=== PATIENT | female | born 1930 | race Caucasian/White ===

== ENCOUNTER 2017-05-31 18:37 | Inpatient (IN) | payer MEDICARE, BC ==
[2017-05-31 18:57] VITALS: BP 118/65
[2017-05-31] MEDS ORDERED: Maalox 30 mL Cup PO PRN (19:09)
[2017-06-01] MEDS ORDERED: ALBUTEROL SULFATE HHN SCH (06:00)
[2017-06-01] MEDS ORDERED: ALBUTEROL SULFATE HHN PRN (06:30)
[2017-06-01] MEDS ORDERED: Albuterol Nebulizer 2.5mg/3mL HHN PRN (07:48)
[2017-06-01] MEDS ORDERED: LOVASTATIN 20 MG PO SCH (09:00)
[2017-06-01] MEDS: Multivitamin Tab PO SCH (11:51)
[2017-06-01] MEDS ORDERED: THEOPHYLLINE ANHYDROUS 400 MG PO SCH (21:00)
[2017-06-01] MEDS ORDERED: Theophylline 200 mg ER Tab PO SCH (21:00)
[2017-06-02] MEDS: Diltiazem CD 120 mg 24H PO SCH (08:14)
[2017-06-02] MEDS: Multivitamin Tab PO SCH (08:14)
[2017-06-02] MEDS: Hydrocodone/APAP 5mg/325mg Tab PO PRN (08:25)
[2017-06-02] MEDS: Theophylline 100 mg ER Tab PO SCH (20:54)
[2017-06-03] MEDS: Diltiazem CD 120 mg 24H PO SCH (10:45)
[2017-06-03] MEDS: Multivitamin Tab PO SCH (10:45)
[2017-06-03] MEDS: Theophylline 100 mg ER Tab PO SCH (20:30)
[2017-06-04] MEDS: Diltiazem CD 120 mg 24H PO SCH (06:49)
[2017-06-04] MEDS: Multivitamin Tab PO SCH (08:15)
[2017-06-04] MEDS: Theophylline 100 mg ER Tab PO SCH (20:41)
[2017-06-05] MEDS: Diltiazem CD 120 mg 24H PO SCH (06:49)
[2017-06-05] MEDS: Multivitamin Tab PO SCH (08:34)
[2017-06-05] MEDS: Theophylline 100 mg ER Tab PO SCH (20:54)
[2017-06-06] MEDS: Diltiazem CD 120 mg 24H PO SCH (06:58)
[2017-06-06] MEDS: Multivitamin Tab PO SCH (08:51)
[2017-06-06] MEDS: Theophylline 100 mg ER Tab PO SCH (20:55)
[2017-06-07] MEDS: Diltiazem CD 120 mg 24H PO SCH (06:36)
[2017-06-07] MEDS: Multivitamin Tab PO SCH (08:42)
[2017-06-07] MEDS: Escitalopram Oxalate 5 mg Tab PO SCH (21:02)
[2017-06-07] MEDS: Theophylline 100 mg ER Tab PO SCH (21:03)
[2017-06-08] MEDS: Diltiazem CD 120 mg 24H PO SCH (06:51)
[2017-06-08] MEDS: Multivitamin Tab PO SCH (08:26)
[2017-06-08] MEDS: Theophylline 100 mg ER Tab PO SCH (20:59)
[2017-06-08] MEDS: Escitalopram Oxalate 5 mg Tab PO SCH (20:59)
[2017-06-09] MEDS: Diltiazem CD 120 mg 24H PO SCH (06:35)
[2017-06-09] MEDS: Multivitamin Tab PO SCH (08:36)
[2017-06-09] MEDS: Escitalopram Oxalate 5 mg Tab PO SCH (20:10)
[2017-06-09] MEDS: Theophylline 100 mg ER Tab PO SCH (20:10)
[2017-06-10] MEDS: Diltiazem CD 120 mg 24H PO SCH (06:51)
[2017-06-10] MEDS: Multivitamin Tab PO SCH (08:22)
[2017-06-10] MEDS: Escitalopram Oxalate 5 mg Tab PO SCH (21:29)
[2017-06-10] MEDS: Theophylline 100 mg ER Tab PO SCH (21:30)
[2017-06-11] MEDS: Diltiazem CD 120 mg 24H PO SCH (06:34)
[2017-06-11] MEDS: Multivitamin Tab PO SCH (09:54)
[2017-06-11] MEDS: Theophylline 100 mg ER Tab PO SCH (20:27)
[2017-06-12] MEDS: Diltiazem CD 120 mg 24H PO SCH (06:30)
[2017-06-12] MEDS: Multivitamin Tab PO SCH (08:14)
[2017-06-12] MEDS: Theophylline 100 mg ER Tab PO SCH (20:15)
[2017-06-13] MEDS: Diltiazem CD 120 mg 24H PO SCH (06:46)
--- NOTE | 2017-06-13 08:10 | General Progress Note ---
Subjective - Review of Systems Service Date: 06/13/17 Subjective: Awake, alert, afebrile Objective - Results Recent Labs: Laboratory Last Values POC Glucose 134 MG/DL (70 - 105) H 06/03/17 06:03 - Physical Exam Vitals and I&O: Vital Signs Temp 98.3 F 06/13/17 06:30 Pulse 63 06/13/17 06:46 Resp 18 06/13/17 06:30 BP 128/68 06/13/17 06:30 Pulse Ox 95 06/13/17 06:30 Intake & Output 06/12/17 06/13/17 06/13/17 18:59 06:59 18:59 Intake Total 1200 120 Balance 1200 120 Weight (lbs) 55.61 kg Intake: Oral 1200 120 Other: # Voids 3 # Bowel Movements 1 Active Medications: Current Medications Acetaminophen/Hydrocodone Bitart ([place] 5mg/325mg) 1 tab PO Q6H PRN PRN Reason: Pain (Moderate) Stop: 07/31/17 05:47 Last Admin: 06/02/17 08:25 Dose: 1 tab Al Hydrox/Mg Hydrox/Simethicone (Maalox) 30 ml PO Q4HR PRN PRN Reason: GI DISTRESS Stop: 07/30/17 19:08 Albuterol Sulfate (Albuterol 2.5mg/3ml Neb Ud) 2.5 mg HHN Q4HRT PRN PRN Reason: Shortness of Breath Stop: 07/31/17 07:47 Clopidogrel Bisulfate (Plavix) 75 mg PO DAILY [facility] Stop: 07/31/17 08:59 Last Admin: 06/12/17 08:15 Dose: 75 mg Digoxin (Lanoxin) 0.125 mg PO DAILY [facility] Stop: 07/31/17 08:59 Last Admin: 06/12/17 08:15 Dose: 0.125 mg Diltiazem HCl (Cardizem Cd) 120 mg PO QDAC [facility] Stop: 08/01/17 07:29 Last Admin: 06/13/17 06:46 Dose: Not Given Escitalopram Oxalate (Lexapro) 15 mg PO HS DAVID PRN Reason: Protocol Stop: 08/06/17 20:59 Lorazepam (Ativan) 0.5 mg PO Q4HR PRN; Protocol PRN Reason: Agitation Stop: 06/30/17 19:08 Last Admin: 06/09/17 14:50 Dose: 0.5 mg Multivitamins/Vitamin C (Theragran) 1 tab PO DAILY DAVID Stop: 07/31/17 08:59 Last Admin: 06/12/17 08:14 Dose: 1 tab Prednisone (Deltasone) 5 mg PO DAILY [facility]ID Stop: 07/31/17 08:59 Last Admin: 06/12/17 08:15 Dose: 5 mg Quetiapine Fumarate (Seroquel) 25 mg PO BID DAVID PRN Reason: Protocol Stop: 08/03/17 11:23 Last Admin: 06/12/17 16:43 Dose: 25 mg Simvastatin (Zocor) 10 mg PO HS DAVID PRN Reason: Protocol Stop: 07/31/17 20:59 Last Admin: 06/12/17 20:15 Dose: 10 mg Theophylline (Eddie-Dur) 400 mg PO HS DAVID Stop: 07/31/17 20:59 Last Admin: 06/12/17 20:15 Dose: 400 mg Zolpidem Tartrate (Ambien) 5 mg PO HS PRN PRN Reason: Insomnia Stop: 07/30/17 19:08 General: Alert HEENT: Atraumatic Neck: Supple Cardiovascular: Regular rate Lungs: Clear to auscultation - Procedures Procedures: Procedures Procedure Code Date INDIVID PSYCHOTHERAP NEC 94.39 11/14/05 OTHER GROUP THERAPY 94.44 11/14/05 RECREATIONAL THERAPY 93.81 11/14/05 Assessment/Plan - Problem List Patient Problems: All Active Problems CAD (coronary artery disease) (Acute) I25.10 CHF (congestive heart failure) (Acute) I50.9 COPD (chronic obstructive pulmonary disease) (Acute) Dementia (Acute) F03.90 Hypertension (Acute) I10 Psychosis (Acute) F29 - Assessment Assessment: See Above - Plan Plan: continue current treatment Nutritional Asmnt/Malnutr-PDOC - Dietary Evaluation Malnutrition Findings (Please click <Entered> for more info): Nutritional Asmnt/Malnutrition Start: 06/01/17 08: 38 Text: Status: Complete Freq: Document 06/05/17 16:01 GERMÁN (Rec: 06/05/17 16:11 GERMÁN [id number]) Nutritional Asmnt/Malnutrition Patient General Information Nutritional Screening Moderate Risk Screening Diagnosis Reason for visit: psychosis Pertinent Medical Hx/Surgical Hx HTN, Afib, CAD, COPD, CHF, CVA , dementia, psychosis Subjective Information 86 year old female. Pt was resting in bed during visit. Pt opened eyes and made contact upon RD's call, shook head declined interview at this time. Spoke to TONYA Plata, RN stated pt has been sleepy this AM, usually with fair to good appetite, no nutritional concerns. Observed loose skin possible hx weight loss, mild wasting to chest, otherwise appeared appropriate for age. Avg PO inake 75-100% since adm , meeting nutritional needs. Current Diet Order/ Nutrition Support [id number] Pertinent Medications Maalox, Theragran, Seroquel, Zocor Pertinent Labs POC glucose 117, 134 since adm No other labs Nutritional Hx/Data Height 1.57 m Height (Calculated Centimeters) 157.5 Current Weight (lbs) 53.932 kg Weight (Calculated Kilograms) 53.9 Weight (Calculated Grams) 60528.1 [place] Body Weight 110 Weight Status Approriate GI Symptoms Food Allergies No Skin Integrity/Comment: Jareth Gunn. Skin intact. Current %PO Good (75-100%) Estimated Nutritional Goals BEE in Kcals: Using Current wt Calories/Kcals/Kg CBW 118.9lb/54kg Kcals Calculated 1350-1620kcal (25-30kcal/kg) Protein: Using Current wt Protein Calculated 54g (1g/kg) Fluid: ml 1350-1620ml (1ml/kcal) Nutritional Problem 1. Problem Problem No nutritional problem at this time. Intervention/Recommendation Comments 1. Continue with current diet order. Avg PO intake is adequate. 2. Monitor glucose, hx DM not noted in H&P, pt is on [id number], not on DM meds, only 2 accuchecks in adm. 3. Nursing staff to record meal activity, 2 recordings since adm. Expected Outcomes/Goals Expected Outcomes/Goals 1. PO intake continue to meet at least 75% of estimated nutritional needs.
[2017-06-13] MEDS: Multivitamin Tab PO SCH (09:25)
[2017-06-13] MEDS: Theophylline 100 mg ER Tab PO SCH (20:38)
[2017-06-14] MEDS: Diltiazem CD 120 mg 24H PO SCH (06:34)
--- NOTE | 2017-06-14 08:09 | General Progress Note ---
Subjective - Review of Systems Service Date: 06/14/17 Subjective: Awake, alert, afebrile Objective - Results Recent Labs: Laboratory Last Values POC Glucose 134 MG/DL (70 - 105) H 06/03/17 06:03 - Physical Exam Vitals and I&O: Vital Signs Temp 98.7 F 06/14/17 06:27 Pulse 64 06/14/17 06:34 Resp 18 06/14/17 06:27 BP 135/65 06/14/17 06:27 Pulse Ox 98 06/14/17 06:27 Intake & Output 06/13/17 06/14/17 06/14/17 18:59 06:59 18:59 Intake Total 120 Balance 120 Intake: Oral 120 Other: # Voids 3 Active Medications: Current Medications Acetaminophen/Hydrocodone Bitart ([place] 5mg/325mg) 1 tab PO Q6H PRN PRN Reason: Pain (Moderate) Stop: 07/31/17 05:47 Last Admin: 06/02/17 08:25 Dose: 1 tab Al Hydrox/Mg Hydrox/Simethicone (Maalox) 30 ml PO Q4HR PRN PRN Reason: GI DISTRESS Stop: 07/30/17 19:08 Albuterol Sulfate (Albuterol 2.5mg/3ml Neb Ud) 2.5 mg HHN Q4HRT PRN PRN Reason: Shortness of Breath Stop: 07/31/17 07:47 Clopidogrel Bisulfate (Plavix) 75 mg PO DAILY [facility] Stop: 07/31/17 08:59 Last Admin: 06/13/17 09:25 Dose: 75 mg Digoxin (Lanoxin) 0.125 mg PO DAILY [facility] Stop: 07/31/17 08:59 Last Admin: 06/13/17 09:25 Dose: 0.125 mg Diltiazem HCl (Cardizem Cd) 120 mg PO QDAC [facility] Stop: 08/01/17 07:29 Last Admin: 06/14/17 06:34 Dose: 120 mg Escitalopram Oxalate (Lexapro) 15 mg PO HS [facility]ID PRN Reason: Protocol Stop: 08/06/17 20:59 Last Admin: 06/13/17 20:40 Dose: 15 mg Lorazepam (Ativan) 0.5 mg PO Q4HR PRN; Protocol PRN Reason: Agitation Stop: 06/30/17 19:08 Last Admin: 06/09/17 14:50 Dose: 0.5 mg Multivitamins/Vitamin C (Theragran) 1 tab PO DAILY [facility] Stop: 07/31/17 08:59 Last Admin: 06/13/17 09:25 Dose: 1 tab Prednisone (Deltasone) 5 mg PO DAILY [facility] Stop: 07/31/17 08:59 Last Admin: 06/13/17 09:25 Dose: 5 mg Quetiapine Fumarate (Seroquel) 25 mg PO BID [facility]ID PRN Reason: Protocol Stop: 08/03/17 11:23 Last Admin: 06/13/17 17:34 Dose: 25 mg Simvastatin (Zocor) 10 mg PO HS DAVID PRN Reason: Protocol Stop: 07/31/17 20:59 Last Admin: 06/13/17 20:40 Dose: 10 mg Theophylline (Eddie-Dur) 400 mg PO HS [facility] Stop: 07/31/17 20:59 Last Admin: 06/13/17 20:38 Dose: 400 mg Zolpidem Tartrate (Ambien) 5 mg PO HS PRN PRN Reason: Insomnia Stop: 07/30/17 19:08 General: Alert HEENT: Atraumatic Neck: Supple Cardiovascular: Regular rate Lungs: Clear to auscultation - Procedures Procedures: Procedures Procedure Code Date INDIVID PSYCHOTHERAP NEC 94.39 11/14/05 OTHER GROUP THERAPY 94.44 11/14/05 RECREATIONAL THERAPY 93.81 11/14/05 Assessment/Plan - Problem List Patient Problems: All Active Problems CAD (coronary artery disease) (Acute) I25.10 CHF (congestive heart failure) (Acute) I50.9 COPD (chronic obstructive pulmonary disease) (Acute) Dementia (Acute) F03.90 Hypertension (Acute) I10 Psychosis (Acute) F29 - Assessment Assessment: See Above - Plan Plan: continue current treatment Nutritional Asmnt/Malnutr-PDOC - Dietary Evaluation Malnutrition Findings (Please click <Entered> for more info): Nutritional Asmnt/Malnutrition Start: 06/01/17 08: 38 Text: Status: Complete Freq: Document 06/05/17 16:01 GERMÁN (Rec: 06/05/17 16:11 GERMÁN [id number]) Nutritional Asmnt/Malnutrition Patient General Information Nutritional Screening Moderate Risk Screening Diagnosis Reason for visit: psychosis Pertinent Medical Hx/Surgical Hx HTN, Afib, CAD, COPD, CHF, CVA , dementia, psychosis Subjective Information 86 year old female. Pt was resting in bed during visit. Pt opened eyes and made contact upon RD's call, shook head declined interview at this time. Spoke to TONYA Plata, RN stated pt has been sleepy this AM, usually with fair to good appetite, no nutritional concerns. Observed loose skin possible hx weight loss, mild wasting to chest, otherwise appeared appropriate for age. Avg PO inake 75-100% since adm , meeting nutritional needs. Current Diet Order/ Nutrition Support [id number] Pertinent Medications Maalox, Theragran, Seroquel, Zocor Pertinent Labs POC glucose 117, 134 since adm No other labs Nutritional Hx/Data Height 1.57 m Height (Calculated Centimeters) 157.5 Current Weight (lbs) 53.932 kg Weight (Calculated Kilograms) 53.9 Weight (Calculated Grams) 38534.1 [place] Body Weight 110 Weight Status Approriate GI Symptoms Food Allergies No Skin Integrity/Comment: Jareth Gunn. Skin intact. Current %PO Good (75-100%) Estimated Nutritional Goals BEE in Kcals: Using Current wt Calories/Kcals/Kg CBW 118.9lb/54kg Kcals Calculated 1350-1620kcal (25-30kcal/kg) Protein: Using Current wt Protein Calculated 54g (1g/kg) Fluid: ml 1350-1620ml (1ml/kcal) Nutritional Problem 1. Problem Problem No nutritional problem at this time. Intervention/Recommendation Comments 1. Continue with current diet order. Avg PO intake is adequate. 2. Monitor glucose, hx DM not noted in H&P, pt is on [id number], not on DM meds, only 2 accuchecks in adm. 3. Nursing staff to record meal activity, 2 recordings since adm. Expected Outcomes/Goals Expected Outcomes/Goals 1. PO intake continue to meet at least 75% of estimated nutritional needs.
[2017-06-14] MEDS: Multivitamin Tab PO SCH (09:14)
[2017-06-14] MEDS: Theophylline 100 mg ER Tab PO SCH (20:55)
--- NOTE | 2017-06-14 21:44 | Progress Notes ---
DATE: 06/14/2017 SUBJECTIVE: Chart reviewed and the patient interviewed. Also discussed the patient's condition with the staff and reviewed records and labs. The patient is still having disorganized and is still confused. The patient also still needs lots of redirections. The patient also is paranoid and is still severely anxious. The patient also is still in angry mood and gets agitated easily. Otherwise, the patient is compliant with taking medications with no side effects of medications. ASSESSMENT: The patient is still psychotic and considered to be gravely disabled. TREATMENT PLAN: Continue monitoring psychotropic medications and continue to work on her behavioral modification and agitation. 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 JOB# [id number]
[2017-06-15] MEDS: Diltiazem CD 120 mg 24H PO SCH (06:52)
--- NOTE | 2017-06-15 07:11 | General Progress Note ---
Subjective - Review of Systems Service Date: 06/15/17 Subjective: Awake, alert, afebrile Objective - Results Recent Labs: Laboratory Last Values POC Glucose 134 MG/DL (70 - 105) H 06/03/17 06:03 - Physical Exam Vitals and I&O: Vital Signs Temp 98.2 F 06/14/17 14:00 Pulse 66 06/15/17 06:52 Resp 19 06/14/17 19:17 BP 118/50 06/14/17 14:00 Pulse Ox 100 06/14/17 19:17 Intake & Output 06/14/17 06/15/17 06/15/17 18:59 06:59 18:59 Intake Total 1000 Balance 1000 Intake: Oral 1000 Other: # Voids 3 # Bowel Movements 1 Active Medications: Current Medications Acetaminophen/Hydrocodone Bitart ([place] 5mg/325mg) 1 tab PO Q6H PRN PRN Reason: Pain (Moderate) Stop: 07/31/17 05:47 Last Admin: 06/02/17 08:25 Dose: 1 tab Al Hydrox/Mg Hydrox/Simethicone (Maalox) 30 ml PO Q4HR PRN PRN Reason: GI DISTRESS Stop: 07/30/17 19:08 Albuterol Sulfate (Albuterol 2.5mg/3ml Neb Ud) 2.5 mg HHN Q4HRT PRN PRN Reason: Shortness of Breath Stop: 07/31/17 07:47 Clopidogrel Bisulfate (Plavix) 75 mg PO DAILY [facility]ID Stop: 07/31/17 08:59 Last Admin: 06/14/17 09:13 Dose: 75 mg Digoxin (Lanoxin) 0.125 mg PO DAILY [facility]ID Stop: 07/31/17 08:59 Last Admin: 06/14/17 09:14 Dose: 0.125 mg Diltiazem HCl (Cardizem Cd) 120 mg PO QDAC [facility] Stop: 08/01/17 07:29 Last Admin: 06/15/17 06:52 Dose: 120 mg Escitalopram Oxalate (Lexapro) 15 mg PO HS DAVID PRN Reason: Protocol Stop: 08/06/17 20:59 Last Admin: 06/14/17 20:56 Dose: 15 mg Lorazepam (Ativan) 0.5 mg PO Q4HR PRN; Protocol PRN Reason: Agitation Stop: 06/30/17 19:08 Last Admin: 06/09/17 14:50 Dose: 0.5 mg Multivitamins/Vitamin C (Theragran) 1 tab PO DAILY [facility] Stop: 07/31/17 08:59 Last Admin: 06/14/17 09:14 Dose: 1 tab Prednisone (Deltasone) 5 mg PO DAILY [facility] Stop: 07/31/17 08:59 Last Admin: 06/14/17 09:13 Dose: 5 mg Quetiapine Fumarate (Seroquel) 25 mg PO BID [facility]ID PRN Reason: Protocol Stop: 08/03/17 11:23 Last Admin: 06/14/17 16:28 Dose: 25 mg Simvastatin (Zocor) 10 mg PO HS DAVID PRN Reason: Protocol Stop: 07/31/17 20:59 Last Admin: 06/14/17 20:57 Dose: 10 mg Theophylline (Eddie-Dur) 400 mg PO HS [facility]ID Stop: 07/31/17 20:59 Last Admin: 06/14/17 20:55 Dose: 400 mg Zolpidem Tartrate (Ambien) 5 mg PO HS PRN PRN Reason: Insomnia Stop: 07/30/17 19:08 General: Alert HEENT: Atraumatic Neck: Supple Cardiovascular: Regular rate Lungs: Clear to auscultation - Procedures Procedures: Procedures Procedure Code Date INDIVID PSYCHOTHERAP NEC 94.39 11/14/05 OTHER GROUP THERAPY 94.44 11/14/05 RECREATIONAL THERAPY 93.81 11/14/05 Assessment/Plan - Problem List Patient Problems: All Active Problems CAD (coronary artery disease) (Acute) I25.10 CHF (congestive heart failure) (Acute) I50.9 COPD (chronic obstructive pulmonary disease) (Acute) Dementia (Acute) F03.90 Hypertension (Acute) I10 Psychosis (Acute) F29 - Assessment Assessment: See Above - Plan Plan: continue current treatment Nutritional Asmnt/Malnutr-PDOC - Dietary Evaluation Malnutrition Findings (Please click <Entered> for more info): Nutritional Asmnt/Malnutrition Start: 06/01/17 08: 38 Text: Status: Complete Freq: Document 06/05/17 16:01 GERMÁN (Rec: 06/05/17 16:11 GERMÁN [id number]) Nutritional Asmnt/Malnutrition Patient General Information Nutritional Screening Moderate Risk Screening Diagnosis Reason for visit: psychosis Pertinent Medical Hx/Surgical Hx HTN, Afib, CAD, COPD, CHF, CVA , dementia, psychosis Subjective Information 86 year old female. Pt was resting in bed during visit. Pt opened eyes and made contact upon RD's call, shook head declined interview at this time. Spoke to TONYA Plata, RN stated pt has been sleepy this AM, usually with fair to good appetite, no nutritional concerns. Observed loose skin possible hx weight loss, mild wasting to chest, otherwise appeared appropriate for age. Avg PO inake 75-100% since adm , meeting nutritional needs. Current Diet Order/ Nutrition Support [id number] Pertinent Medications Maalox, Theragran, Seroquel, Zocor Pertinent Labs POC glucose 117, 134 since adm No other labs Nutritional Hx/Data Height 1.57 m Height (Calculated Centimeters) 157.5 Current Weight (lbs) 53.932 kg Weight (Calculated Kilograms) 53.9 Weight (Calculated Grams) 95933.1 [place] Body Weight 110 Weight Status Approriate GI Symptoms Food Allergies No Skin Integrity/Comment: Jareth Gunn. Skin intact. Current %PO Good (75-100%) Estimated Nutritional Goals BEE in Kcals: Using Current wt Calories/Kcals/Kg CBW 118.9lb/54kg Kcals Calculated 1350-1620kcal (25-30kcal/kg) Protein: Using Current wt Protein Calculated 54g (1g/kg) Fluid: ml 1350-1620ml (1ml/kcal) Nutritional Problem 1. Problem Problem No nutritional problem at this time. Intervention/Recommendation Comments 1. Continue with current diet order. Avg PO intake is adequate. 2. Monitor glucose, hx DM not noted in H&P, pt is on [id number], not on DM meds, only 2 accuchecks in adm. 3. Nursing staff to record meal activity, 2 recordings since adm. Expected Outcomes/Goals Expected Outcomes/Goals 1. PO intake continue to meet at least 75% of estimated nutritional needs.
[2017-06-15] MEDS: Multivitamin Tab PO SCH (09:26)
--- NOTE | 2017-06-15 20:33 | Progress Notes ---
DATE: 06/15/2017 SUBJECTIVE: Chart reviewed and the patient interviewed. Also discussed the patient's condition with the staff and reviewed records and labs. The patient continued to be forgetful and is still confused. The patient also is still guarded and restless. The patient also still wants to be left alone and she has disorganized thoughts. The patient also is paranoid. She also has difficulty interacting with others because of her confusion and forgetfulness. ASSESSMENT: The patient is still confused and considered to be gravely disabled. TREATMENT PLAN: Continue monitoring her behavior and her condition closely. Also, we will continue to work on her psychosis and adjusting psychotropic medications. JOB# [id number]
[2017-06-15] MEDS: Theophylline 100 mg ER Tab PO SCH (20:47)
[2017-06-16] MEDS: Diltiazem CD 120 mg 24H PO SCH (06:30)
[2017-06-16] MEDS: Multivitamin Tab PO SCH (09:07)
--- NOTE | 2017-06-16 12:05 | Progress Notes ---
DATE: 06/16/2017 SUBJECTIVE: Chart reviewed and the patient interviewed. Also, discussed the patient's condition with the staff and reviewed records and labs. The patient continued to be anxious and she is still isolative and withdrawn and interacting minimally with others. The patient also is still confused and forgetful. She also is showing deterioration and hygiene. Also, ____ to be slightly increased. Otherwise, the patient continued to comply with taking her medications. ASSESSMENT: The patient has been confused and psychotic. TREATMENT PLAN: Continue to monitor psychotropic medications and continue to work on discharge plans and placement issue. JOB# [id number]
--- NOTE | 2017-06-16 20:03 | General Progress Note ---
Subjective - Review of Systems Service Date: 06/16/17 Subjective: Awake, alert, afebrile. No new complaints Objective - Results Recent Labs: Laboratory Last Values POC Glucose 134 MG/DL (70 - 105) H 06/03/17 06:03 - Physical Exam Vitals and I&O: Vital Signs Temp 99.5 F 06/16/17 16:26 Pulse 51 06/16/17 16:26 Resp 20 06/16/17 16:26 BP 119/51 06/16/17 16:26 Pulse Ox 96 06/16/17 16:26 Intake & Output 06/16/17 06/16/17 06/17/17 06:59 18:59 06:59 Intake Total 950 Balance 950 Intake: Oral 950 Other: # Voids 4 # Bowel Movements 1 Active Medications: Current Medications Acetaminophen/Hydrocodone Bitart ([place] 5mg/325mg) 1 tab PO Q6H PRN PRN Reason: Pain (Moderate) Stop: 07/31/17 05:47 Last Admin: 06/02/17 08:25 Dose: 1 tab Al Hydrox/Mg Hydrox/Simethicone (Maalox) 30 ml PO Q4HR PRN PRN Reason: GI DISTRESS Stop: 07/30/17 19:08 Albuterol Sulfate (Albuterol 2.5mg/3ml Neb Ud) 2.5 mg HHN Q4HRT PRN PRN Reason: Shortness of Breath Stop: 07/31/17 07:47 Clopidogrel Bisulfate (Plavix) 75 mg PO DAILY [facility] Stop: 07/31/17 08:59 Last Admin: 06/16/17 09:07 Dose: 75 mg Digoxin (Lanoxin) 0.125 mg PO DAILY [facility] Stop: 07/31/17 08:59 Last Admin: 06/16/17 09:07 Dose: Not Given Diltiazem HCl (Cardizem Cd) 120 mg PO QDAC [facility] Stop: 08/01/17 07:29 Last Admin: 06/16/17 06:30 Dose: Not Given Escitalopram Oxalate (Lexapro) 15 mg PO HS DAVID PRN Reason: Protocol Stop: 08/06/17 20:59 Last Admin: 06/15/17 20:47 Dose: 15 mg Lorazepam (Ativan) 0.5 mg PO Q6HR PRN; Protocol PRN Reason: Agitation Stop: 08/14/17 10:22 Multivitamins/Vitamin C (Theragran) 1 tab PO DAILY [facility] Stop: 07/31/17 08:59 Last Admin: 06/16/17 09:07 Dose: 1 tab Prednisone (Deltasone) 5 mg PO DAILY [facility] Stop: 07/31/17 08:59 Last Admin: 06/16/17 09:07 Dose: 5 mg Quetiapine Fumarate (Seroquel) 25 mg PO BID DAVID PRN Reason: Protocol Stop: 08/03/17 11:23 Last Admin: 06/16/17 16:29 Dose: 25 mg Simvastatin (Zocor) 10 mg PO HS DAVID PRN Reason: Protocol Stop: 07/31/17 20:59 Last Admin: 06/15/17 20:46 Dose: 10 mg Theophylline (Eddie-Dur) 400 mg PO HS DAVID Stop: 07/31/17 20:59 Last Admin: 06/15/17 20:47 Dose: 400 mg Zolpidem Tartrate (Ambien) 5 mg PO HS PRN PRN Reason: Insomnia Stop: 08/14/17 10:30 General: Alert HEENT: Atraumatic Neck: Supple Cardiovascular: Regular rate Lungs: Clear to auscultation - Procedures Procedures: Procedures Procedure Code Date INDIVID PSYCHOTHERAP NEC 94.39 11/14/05 OTHER GROUP THERAPY 94.44 11/14/05 RECREATIONAL THERAPY 93.81 11/14/05 Assessment/Plan - Problem List Patient Problems: All Active Problems CAD (coronary artery disease) (Acute) I25.10 CHF (congestive heart failure) (Acute) I50.9 COPD (chronic obstructive pulmonary disease) (Acute) Dementia (Acute) F03.90 Hypertension (Acute) I10 Psychosis (Acute) F29 - Assessment Assessment: See Above - Plan Plan: continue current treatment Nutritional Asmnt/Malnutr-PDOC - Dietary Evaluation Malnutrition Findings (Please click <Entered> for more info): Nutritional Asmnt/Malnutrition Start: 06/01/17 08: 38 Text: Status: Complete Freq: Document 06/05/17 16:01 GERMÁN (Rec: 06/05/17 16:11 GERMÁN [id number]) Nutritional Asmnt/Malnutrition Patient General Information Nutritional Screening Moderate Risk Screening Diagnosis Reason for visit: psychosis Pertinent Medical Hx/Surgical Hx HTN, Afib, CAD, COPD, CHF, CVA , dementia, psychosis Subjective Information 86 year old female. Pt was resting in bed during visit. Pt opened eyes and made contact upon RD's call, shook head declined interview at this time. Spoke to RN Sherlyn RN stated pt has been sleepy this AM, usually with fair to good appetite, no nutritional concerns. Observed loose skin possible hx weight loss, mild wasting to chest, otherwise appeared appropriate for age. Avg PO inake 75-100% since adm , meeting nutritional needs. Current Diet Order/ Nutrition Support [id number] Pertinent Medications Maalox, Theragran, Seroquel, Zocor Pertinent Labs POC glucose 117, 134 since adm No other labs Nutritional Hx/Data Height 1.57 m Height (Calculated Centimeters) 157.5 Current Weight (lbs) 53.932 kg Weight (Calculated Kilograms) 53.9 Weight (Calculated Grams) 39244.1 [place] Body Weight 110 Weight Status Approriate GI Symptoms Food Allergies No Skin Integrity/Comment: Jareth 22. Skin intact. Current %PO Good (75-100%) Estimated Nutritional Goals BEE in Kcals: Using Current wt Calories/Kcals/Kg CBW 118.9lb/54kg Kcals Calculated 1350-1620kcal (25-30kcal/kg) Protein: Using Current wt Protein Calculated 54g (1g/kg) Fluid: ml 1350-1620ml (1ml/kcal) Nutritional Problem 1. Problem Problem No nutritional problem at this time. Intervention/Recommendation Comments 1. Continue with current diet order. Avg PO intake is adequate. 2. Monitor glucose, hx DM not noted in H&P, pt is on [id number], not on DM meds, only 2 accuchecks in adm. 3. Nursing staff to record meal activity, 2 recordings since adm. Expected Outcomes/Goals Expected Outcomes/Goals 1. PO intake continue to meet at least 75% of estimated nutritional needs.
[2017-06-16] MEDS: Theophylline 100 mg ER Tab PO SCH (20:39)
[2017-06-17] MEDS: Diltiazem CD 120 mg 24H PO SCH (06:31)
--- NOTE | 2017-06-17 08:00 | General Progress Note ---
Subjective - Review of Systems Service Date: 06/17/17 Subjective: Awake, alert, afebrile. No new complaints Objective - Results Recent Labs: Laboratory Last Values POC Glucose 134 MG/DL (70 - 105) H 06/03/17 06:03 - Physical Exam Vitals and I&O: Vital Signs Temp 97.9 F 06/17/17 06:15 Pulse 60 06/17/17 06:31 Resp 19 06/17/17 06:15 BP 141/60 06/17/17 06:15 Pulse Ox 96 06/17/17 06:15 Intake & Output 06/16/17 06/17/17 06/17/17 18:59 06:59 18:59 Intake Total 950 Balance 950 Intake: Oral 950 Other: # Voids 4 # Bowel Movements 1 Active Medications: Current Medications Acetaminophen/Hydrocodone Bitart ([place] 5mg/325mg) 1 tab PO Q6H PRN PRN Reason: Pain (Moderate) Stop: 07/31/17 05:47 Last Admin: 06/02/17 08:25 Dose: 1 tab Al Hydrox/Mg Hydrox/Simethicone (Maalox) 30 ml PO Q4HR PRN PRN Reason: GI DISTRESS Stop: 07/30/17 19:08 Albuterol Sulfate (Albuterol 2.5mg/3ml Neb Ud) 2.5 mg HHN Q4HRT PRN PRN Reason: Shortness of Breath Stop: 07/31/17 07:47 Clopidogrel Bisulfate (Plavix) 75 mg PO DAILY DAVID Stop: 07/31/17 08:59 Last Admin: 06/16/17 09:07 Dose: 75 mg Digoxin (Lanoxin) 0.125 mg PO DAILY DAVID Stop: 07/31/17 08:59 Last Admin: 06/16/17 09:07 Dose: Not Given Diltiazem HCl (Cardizem Cd) 120 mg PO QDAC DAVID Stop: 08/01/17 07:29 Last Admin: 06/17/17 06:31 Dose: 120 mg Escitalopram Oxalate (Lexapro) 15 mg PO HS DAVID PRN Reason: Protocol Stop: 08/06/17 20:59 Last Admin: 06/16/17 20:40 Dose: 15 mg Lorazepam (Ativan) 0.5 mg PO Q6HR PRN; Protocol PRN Reason: Agitation Stop: 08/14/17 10:22 Multivitamins/Vitamin C (Theragran) 1 tab PO DAILY DAVID Stop: 07/31/17 08:59 Last Admin: 06/16/17 09:07 Dose: 1 tab Prednisone (Deltasone) 5 mg PO DAILY DAVID Stop: 07/31/17 08:59 Last Admin: 06/16/17 09:07 Dose: 5 mg Quetiapine Fumarate (Seroquel) 25 mg PO BID DAVID PRN Reason: Protocol Stop: 08/03/17 11:23 Last Admin: 06/16/17 16:29 Dose: 25 mg Simvastatin (Zocor) 10 mg PO HS DAVID PRN Reason: Protocol Stop: 07/31/17 20:59 Last Admin: 06/16/17 20:40 Dose: 10 mg Theophylline (Eddie-Dur) 400 mg PO HS DAVID Stop: 07/31/17 20:59 Last Admin: 06/16/17 20:39 Dose: 400 mg Zolpidem Tartrate (Ambien) 5 mg PO HS PRN PRN Reason: Insomnia Stop: 08/14/17 10:30 General: Alert HEENT: Atraumatic Neck: Supple Cardiovascular: Regular rate Lungs: Clear to auscultation - Procedures Procedures: Procedures Procedure Code Date INDIVID PSYCHOTHERAP NEC 94.39 11/14/05 OTHER GROUP THERAPY 94.44 11/14/05 RECREATIONAL THERAPY 93.81 11/14/05 Assessment/Plan - Problem List Patient Problems: All Active Problems CAD (coronary artery disease) (Acute) I25.10 CHF (congestive heart failure) (Acute) I50.9 COPD (chronic obstructive pulmonary disease) (Acute) Dementia (Acute) F03.90 Hypertension (Acute) I10 Psychosis (Acute) F29 - Assessment Assessment: See Above - Plan Plan: continue current treatment Nutritional Asmnt/Malnutr-PDOC - Dietary Evaluation Malnutrition Findings (Please click <Entered> for more info): Nutritional Asmnt/Malnutrition Start: 06/01/17 08: 38 Text: Status: Complete Freq: Document 06/05/17 16:01 GERMÁN (Rec: 06/05/17 16:11 GERMÁN [email or web address]) Nutritional Asmnt/Malnutrition Patient General Information Nutritional Screening Moderate Risk Screening Diagnosis Reason for visit: psychosis Pertinent Medical Hx/Surgical Hx HTN, Afib, CAD, COPD, CHF, CVA , dementia, psychosis Subjective Information 86 year old female. Pt was resting in bed during visit. Pt opened eyes and made contact upon RD's call, shook head declined interview at this time. Spoke to RN Sherlyn RN stated pt has been sleepy this AM, usually with fair to good appetite, no nutritional concerns. Observed loose skin possible hx weight loss, mild wasting to chest, otherwise appeared appropriate for age. Avg PO inake 75-100% since adm , meeting nutritional needs. Current Diet Order/ Nutrition Support [id number] Pertinent Medications Maalox, Theragran, Seroquel, Zocor Pertinent Labs POC glucose 117, 134 since adm No other labs Nutritional Hx/Data Height 1.57 m Height (Calculated Centimeters) 157.5 Current Weight (lbs) 53.932 kg Weight (Calculated Kilograms) 53.9 Weight (Calculated Grams) 98555.1 [place] Body Weight 110 Weight Status Approriate GI Symptoms Food Allergies No Skin Integrity/Comment: Jareth 22. Skin intact. Current %PO Good (75-100%) Estimated Nutritional Goals BEE in Kcals: Using Current wt Calories/Kcals/Kg CBW 118.9lb/54kg Kcals Calculated 1350-1620kcal (25-30kcal/kg) Protein: Using Current wt Protein Calculated 54g (1g/kg) Fluid: ml 1350-1620ml (1ml/kcal) Nutritional Problem 1. Problem Problem No nutritional problem at this time. Intervention/Recommendation Comments 1. Continue with current diet order. Avg PO intake is adequate. 2. Monitor glucose, hx DM not noted in H&P, pt is on [id number], not on DM meds, only 2 accuchecks in adm. 3. Nursing staff to record meal activity, 2 recordings since adm. Expected Outcomes/Goals Expected Outcomes/Goals 1. PO intake continue to meet at least 75% of estimated nutritional needs.
[2017-06-17] MEDS: Multivitamin Tab PO SCH (09:42)
--- NOTE | 2017-06-17 10:39 | Progress Notes ---
DATE: 06/17/2017 SUBJECTIVE: Case was discussed with staff of the patient, reviewed records. She is well known to me, I have seen her covering for Dr. De La Garza 2 weeks ago. The patient continues to be irritable, confused, continues to be wandering, however, she is compliant with the medication with no side effects, no sedation, no nausea, no extrapyramidal symptoms. She is on Lexapro 15 mg at bedtime and Seroquel 25 mg twice a day, and we will continue to work with the patient in group therapy, milieu therapy, adjust the medication as needed. JOB# [id number]
[2017-06-17] MEDS: Theophylline 100 mg ER Tab PO SCH (20:26)
[2017-06-18] MEDS: Diltiazem CD 120 mg 24H PO SCH (06:41)
--- NOTE | 2017-06-18 07:55 | General Progress Note ---
Subjective - Review of Systems Service Date: 06/18/17 Subjective: Awake, alert, afebrile. No new complaints Objective - Results Recent Labs: Laboratory Last Values POC Glucose 134 MG/DL (70 - 105) H 06/03/17 06:03 - Physical Exam Vitals and I&O: Vital Signs Temp 98.2 F 06/18/17 06:03 Pulse 72 06/18/17 06:41 Resp 19 06/18/17 06:03 BP 122/72 06/18/17 06:03 Pulse Ox 96 06/18/17 06:03 Intake & Output 06/17/17 06/18/17 06/18/17 18:59 06:59 18:59 Intake Total 1800 Balance 1800 Intake: Oral 1800 Other: # Voids 4 # Bowel Movements 1 Active Medications: Current Medications Acetaminophen/Hydrocodone Bitart ([place] 5mg/325mg) 1 tab PO Q6H PRN PRN Reason: Pain (Moderate) Stop: 07/31/17 05:47 Last Admin: 06/02/17 08:25 Dose: 1 tab Al Hydrox/Mg Hydrox/Simethicone (Maalox) 30 ml PO Q4HR PRN PRN Reason: GI DISTRESS Stop: 07/30/17 19:08 Albuterol Sulfate (Albuterol 2.5mg/3ml Neb Ud) 2.5 mg HHN Q4HRT PRN PRN Reason: Shortness of Breath Stop: 07/31/17 07:47 Clopidogrel Bisulfate (Plavix) 75 mg PO DAILY DAVID Stop: 07/31/17 08:59 Last Admin: 06/17/17 09:42 Dose: 75 mg Digoxin (Lanoxin) 0.125 mg PO DAILY DAVID Stop: 07/31/17 08:59 Last Admin: 06/17/17 09:42 Dose: 0.125 mg Diltiazem HCl (Cardizem Cd) 120 mg PO QDAC DAVID Stop: 08/01/17 07:29 Last Admin: 06/18/17 06:41 Dose: 120 mg Escitalopram Oxalate (Lexapro) 15 mg PO HS DAVID PRN Reason: Protocol Stop: 08/06/17 20:59 Last Admin: 06/17/17 20:26 Dose: 15 mg Lorazepam (Ativan) 0.5 mg PO Q6HR PRN; Protocol PRN Reason: Agitation Stop: 08/14/17 10:22 Multivitamins/Vitamin C (Theragran) 1 tab PO DAILY DAVID Stop: 07/31/17 08:59 Last Admin: 06/17/17 09:42 Dose: 1 tab Prednisone (Deltasone) 5 mg PO DAILY [facility] Stop: 07/31/17 08:59 Last Admin: 06/17/17 09:42 Dose: 5 mg Quetiapine Fumarate (Seroquel) 25 mg PO BID DAVID PRN Reason: Protocol Stop: 08/03/17 11:23 Last Admin: 06/17/17 16:43 Dose: 25 mg Simvastatin (Zocor) 10 mg PO HS DAVID PRN Reason: Protocol Stop: 07/31/17 20:59 Last Admin: 06/17/17 20:26 Dose: 10 mg Theophylline (Eddie-Dur) 400 mg PO HS DAVID Stop: 07/31/17 20:59 Last Admin: 06/17/17 20:26 Dose: 400 mg Zolpidem Tartrate (Ambien) 5 mg PO HS PRN PRN Reason: Insomnia Stop: 08/14/17 10:30 General: Alert HEENT: Atraumatic Neck: Supple Cardiovascular: Regular rate Lungs: Clear to auscultation - Procedures Procedures: Procedures Procedure Code Date INDIVID PSYCHOTHERAP NEC 94.39 11/14/05 OTHER GROUP THERAPY 94.44 11/14/05 RECREATIONAL THERAPY 93.81 11/14/05 Assessment/Plan - Problem List Patient Problems: All Active Problems CAD (coronary artery disease) (Acute) I25.10 CHF (congestive heart failure) (Acute) I50.9 COPD (chronic obstructive pulmonary disease) (Acute) Dementia (Acute) F03.90 Hypertension (Acute) I10 Psychosis (Acute) F29 - Assessment Assessment: See Above - Plan Plan: continue current treatment Nutritional Asmnt/Malnutr-PDOC - Dietary Evaluation Malnutrition Findings (Please click <Entered> for more info): Nutritional Asmnt/Malnutrition Start: 06/01/17 08: 38 Text: Status: Complete Freq: Document 06/05/17 16:01 GERMÁN (Rec: 06/05/17 16:11 GERMÁN [id number]) Nutritional Asmnt/Malnutrition Patient General Information Nutritional Screening Moderate Risk Screening Diagnosis Reason for visit: psychosis Pertinent Medical Hx/Surgical Hx HTN, Afib, CAD, COPD, CHF, CVA , dementia, psychosis Subjective Information 86 year old female. Pt was resting in bed during visit. Pt opened eyes and made contact upon RD's call, shovineet head declined interview at this time. Spoke to TONYA Plata, RN stated pt has been sleepy this AM, usually with fair to good appetite, no nutritional concerns. Observed loose skin possible hx weight loss, mild wasting to chest, otherwise appeared appropriate for age. Avg PO inake 75-100% since adm , meeting nutritional needs. Current Diet Order/ Nutrition Support [id number] Pertinent Medications Maalox, Theragran, Seroquel, Zocor Pertinent Labs POC glucose 117, 134 since adm No other labs Nutritional Hx/Data Height 1.57 m Height (Calculated Centimeters) 157.5 Current Weight (lbs) 53.932 kg Weight (Calculated Kilograms) 53.9 Weight (Calculated Grams) 95937.1 [place] Body Weight 110 Weight Status Approriate GI Symptoms Food Allergies No Skin Integrity/Comment: Jareth Velia. Skin intact. Current %PO Good (75-100%) Estimated Nutritional Goals BEE in Kcals: Using Current wt Calories/Kcals/Kg CBW 118.9lb/54kg Kcals Calculated 1350-1620kcal (25-30kcal/kg) Protein: Using Current wt Protein Calculated 54g (1g/kg) Fluid: ml 1350-1620ml (1ml/kcal) Nutritional Problem 1. Problem Problem No nutritional problem at this time. Intervention/Recommendation Comments 1. Continue with current diet order. Avg PO intake is adequate. 2. Monitor glucose, hx DM not noted in H&P, pt is on [id number], not on DM meds, only 2 accuchecks in adm. 3. Nursing staff to record meal activity, 2 recordings since adm. Expected Outcomes/Goals Expected Outcomes/Goals 1. PO intake continue to meet at least 75% of estimated nutritional needs.
[2017-06-18] MEDS: Multivitamin Tab PO SCH (09:10)
[2017-06-18] MEDS: Theophylline 100 mg ER Tab PO SCH (20:25)
--- NOTE | 2017-06-19 04:44 | Progress Notes ---
DATE: 06/18/2017 SUBJECTIVE: Case was discussed with staff of the patient, reviewed records. The patient continues to be confused, continues to isolate herself. Continues to be unable to make safe plan for self care, withdrawn in her room. She has been compliant with the medication with no side effects, no sedation, no nausea, no extrapyramidal symptoms. We will continue to work with the patient in group therapy, milieu therapy, and adjust medication as needed. JOB# [id number]
[2017-06-19] MEDS: Diltiazem CD 120 mg 24H PO SCH (06:32)
--- NOTE | 2017-06-19 08:25 | General Progress Note ---
Subjective - Review of Systems Service Date: 06/19/17 Subjective: Awake, alert, afebrile. No new complaints Objective - Results Recent Labs: Laboratory Last Values POC Glucose 134 MG/DL (70 - 105) H 06/03/17 06:03 - Physical Exam Vitals and I&O: Vital Signs Temp 97.8 F 06/19/17 06:23 Pulse 68 06/19/17 07:55 Resp 18 06/19/17 07:56 BP 136/64 06/19/17 06:23 Pulse Ox 97 06/19/17 07:55 Intake & Output 06/18/17 06/19/17 06/19/17 18:59 06:59 18:59 Intake Total 320 Balance 320 Intake: Oral 320 Other: # Voids 2 # Bowel Movements 0 Active Medications: Current Medications Acetaminophen/Hydrocodone Bitart ([place] 5mg/325mg) 1 tab PO Q6H PRN PRN Reason: Pain (Moderate) Stop: 07/31/17 05:47 Last Admin: 06/02/17 08:25 Dose: 1 tab Al Hydrox/Mg Hydrox/Simethicone (Maalox) 30 ml PO Q4HR PRN PRN Reason: GI DISTRESS Stop: 07/30/17 19:08 Albuterol Sulfate (Albuterol 2.5mg/3ml Neb Ud) 2.5 mg HHN Q4HRT PRN PRN Reason: Shortness of Breath Stop: 07/31/17 07:47 Clopidogrel Bisulfate (Plavix) 75 mg PO DAILY DAVID Stop: 07/31/17 08:59 Last Admin: 06/18/17 09:11 Dose: 75 mg Digoxin (Lanoxin) 0.125 mg PO DAILY DAVID Stop: 07/31/17 08:59 Last Admin: 06/18/17 09:11 Dose: Not Given Diltiazem HCl (Cardizem Cd) 120 mg PO QDAC DAVID Stop: 08/01/17 07:29 Last Admin: 06/19/17 06:32 Dose: 120 mg Escitalopram Oxalate (Lexapro) 15 mg PO HS DAVID PRN Reason: Protocol Stop: 08/06/17 20:59 Last Admin: 06/18/17 20:26 Dose: 15 mg Lorazepam (Ativan) 0.5 mg PO Q6HR PRN; Protocol PRN Reason: Agitation Stop: 08/14/17 10:22 Multivitamins/Vitamin C (Theragran) 1 tab PO DAILY DAVID Stop: 07/31/17 08:59 Last Admin: 06/18/17 09:10 Dose: 1 tab Prednisone (Deltasone) 5 mg PO DAILY DAVID Stop: 07/31/17 08:59 Last Admin: 06/18/17 09:10 Dose: 5 mg Quetiapine Fumarate (Seroquel) 25 mg PO BID DAVID PRN Reason: Protocol Stop: 08/03/17 11:23 Last Admin: 06/18/17 16:52 Dose: 25 mg Simvastatin (Zocor) 10 mg PO HS DAVID PRN Reason: Protocol Stop: 07/31/17 20:59 Last Admin: 06/18/17 20:26 Dose: 10 mg Theophylline (Eddie-Dur) 400 mg PO HS DAVID Stop: 07/31/17 20:59 Last Admin: 06/18/17 20:25 Dose: 400 mg Zolpidem Tartrate (Ambien) 5 mg PO HS PRN PRN Reason: Insomnia Stop: 08/14/17 10:30 General: Alert HEENT: Atraumatic Neck: Supple Cardiovascular: Regular rate Lungs: Clear to auscultation - Procedures Procedures: Procedures Procedure Code Date INDIVID PSYCHOTHERAP NEC 94.39 11/14/05 OTHER GROUP THERAPY 94.44 11/14/05 RECREATIONAL THERAPY 93.81 11/14/05 Assessment/Plan - Problem List Patient Problems: All Active Problems CAD (coronary artery disease) (Acute) I25.10 CHF (congestive heart failure) (Acute) I50.9 COPD (chronic obstructive pulmonary disease) (Acute) Dementia (Acute) F03.90 Hypertension (Acute) I10 Psychosis (Acute) F29 - Assessment Assessment: See Above - Plan Plan: Patient medically stable will continue current treatment. Nutritional Asmnt/Malnutr-PDOC - Dietary Evaluation Malnutrition Findings (Please click <Entered> for more info): Nutritional Asmnt/Malnutrition Start: 06/01/17 08: 38 Text: Status: Complete Freq: Document 06/05/17 16:01 GERMÁN (Rec: 06/05/17 16:11 GERMÁN [id number]) Nutritional Asmnt/Malnutrition Patient General Information Nutritional Screening Moderate Risk Screening Diagnosis Reason for visit: psychosis Pertinent Medical Hx/Surgical Hx HTN, Afib, CAD, COPD, CHF, CVA , dementia, psychosis Subjective Information 86 year old female. Pt was resting in bed during visit. Pt opened eyes and made contact upon RD's call, shook head declined interview at this time. Spoke to TONYA Plata, RN stated pt has been sleepy this AM, usually with fair to good appetite, no nutritional concerns. Observed loose skin possible hx weight loss, mild wasting to chest, otherwise appeared appropriate for age. Avg PO inake 75-100% since adm , meeting nutritional needs. Current Diet Order/ Nutrition Support [id number] Pertinent Medications Maalox, Theragran, Seroquel, Zocor Pertinent Labs POC glucose 117, 134 since adm No other labs Nutritional Hx/Data Height 1.57 m Height (Calculated Centimeters) 157.5 Current Weight (lbs) 53.932 kg Weight (Calculated Kilograms) 53.9 Weight (Calculated Grams) 66323.1 [place] Body Weight 110 Weight Status Approriate GI Symptoms Food Allergies No Skin Integrity/Comment: Jareth 22. Skin intact. Current %PO Good (75-100%) Estimated Nutritional Goals BEE in Kcals: Using Current wt Calories/Kcals/Kg CBW 118.9lb/54kg Kcals Calculated 1350-1620kcal (25-30kcal/kg) Protein: Using Current wt Protein Calculated 54g (1g/kg) Fluid: ml 1350-1620ml (1ml/kcal) Nutritional Problem 1. Problem Problem No nutritional problem at this time. Intervention/Recommendation Comments 1. Continue with current diet order. Avg PO intake is adequate. 2. Monitor glucose, hx DM not noted in H&P, pt is on [id number], not on DM meds, only 2 accuchecks in adm. 3. Nursing staff to record meal activity, 2 recordings since adm. Expected Outcomes/Goals Expected Outcomes/Goals 1. PO intake continue to meet at least 75% of estimated nutritional needs.
[2017-06-19] MEDS: Multivitamin Tab PO SCH (10:54)
[2017-06-19] MEDS: Hydrocodone/APAP 5mg/325mg Tab PO PRN (14:43)
[2017-06-19] MEDS: Theophylline 100 mg ER Tab PO SCH (20:30)
--- NOTE | 2017-06-19 22:49 | Progress Notes ---
DATE: 06/19/2017 SUBJECTIVE: Chart reviewed and the patient interviewed. Also discussed the patient's condition with the staff and reviewed records and labs. The patient is still confused and is still in a depressed mood. The patient also is still withdrawn and interacting minimally with others. He also is still suspicious and paranoid and resisting care. Also, he needs lots of redirections. Otherwise, the patient is compliant with taking his medications. ASSESSMENT: The patient is still depressed and is still considered to be gravely disabled. TREATMENT PLAN: Continue to monitor his behavior and condition closely. Also, continue to work on discharge plans and on placement issue. JOB# [id number]
[2017-06-20] MEDS: Diltiazem CD 120 mg 24H PO SCH (06:33)
--- NOTE | 2017-06-20 07:27 | General Progress Note ---
Subjective - Review of Systems Service Date: 06/20/17 Subjective: Awake, alert, afebrile. No new complaints Objective - Results Recent Labs: Laboratory Last Values POC Glucose 134 MG/DL (70 - 105) H 06/03/17 06:03 - Physical Exam Vitals and I&O: Vital Signs Temp 98.4 F 06/20/17 06:47 Pulse 69 06/20/17 06:47 Resp 18 06/20/17 06:47 BP 140/70 06/20/17 06:47 Pulse Ox 96 06/20/17 06:47 Intake & Output 06/19/17 06/20/17 06/20/17 18:59 06:59 18:59 Intake Total 340 Balance 340 Weight (lbs) 56.245 kg Intake: Oral 340 Other: # Voids 3 # Bowel Movements 0 Active Medications: Current Medications Acetaminophen/Hydrocodone Bitart ([place] 5mg/325mg) 1 tab PO Q6H PRN PRN Reason: Pain (Moderate) Stop: 07/31/17 05:47 Last Admin: 06/19/17 14:43 Dose: 1 tab Al Hydrox/Mg Hydrox/Simethicone (Maalox) 30 ml PO Q4HR PRN PRN Reason: GI DISTRESS Stop: 07/30/17 19:08 Albuterol Sulfate (Albuterol 2.5mg/3ml Neb Ud) 2.5 mg HHN Q4HRT PRN PRN Reason: Shortness of Breath Stop: 07/31/17 07:47 Clopidogrel Bisulfate (Plavix) 75 mg PO DAILY DAVID Stop: 07/31/17 08:59 Last Admin: 06/19/17 10:52 Dose: 75 mg Digoxin (Lanoxin) 0.125 mg PO DAILY DAVID Stop: 07/31/17 08:59 Last Admin: 06/19/17 10:53 Dose: 0.125 mg Diltiazem HCl (Cardizem Cd) 120 mg PO QDAC DAVID Stop: 08/01/17 07:29 Last Admin: 06/20/17 06:33 Dose: 120 mg Escitalopram Oxalate (Lexapro) 15 mg PO HS DAVID PRN Reason: Protocol Stop: 08/06/17 20:59 Last Admin: 06/19/17 20:31 Dose: 15 mg Lorazepam (Ativan) 0.5 mg PO Q6HR PRN; Protocol PRN Reason: Agitation Stop: 08/14/17 10:22 Multivitamins/Vitamin C (Theragran) 1 tab PO DAILY DAVID Stop: 07/31/17 08:59 Last Admin: 06/19/17 10:54 Dose: 1 tab Prednisone (Deltasone) 5 mg PO DAILY DAVID Stop: 07/31/17 08:59 Last Admin: 06/19/17 10:53 Dose: 5 mg Quetiapine Fumarate (Seroquel) 25 mg PO BID DAVID PRN Reason: Protocol Stop: 08/03/17 11:23 Last Admin: 06/19/17 16:48 Dose: 25 mg Simvastatin (Zocor) 10 mg PO HS DAVID PRN Reason: Protocol Stop: 07/31/17 20:59 Last Admin: 06/19/17 20:30 Dose: 10 mg Theophylline (Eddie-Dur) 400 mg PO HS DAVID Stop: 07/31/17 20:59 Last Admin: 06/19/17 20:30 Dose: 400 mg Zolpidem Tartrate (Ambien) 5 mg PO HS PRN PRN Reason: Insomnia Stop: 08/14/17 10:30 General: Alert HEENT: Atraumatic Neck: Supple Cardiovascular: Regular rate Lungs: Clear to auscultation Abdomen: Bowel sounds, Soft Extremities: no Clubbing, no Cyanosis, no Edema Neurological: Normal gait - Procedures Procedures: Procedures Procedure Code Date INDIVID PSYCHOTHERAP NEC 94.39 11/14/05 OTHER GROUP THERAPY 94.44 11/14/05 RECREATIONAL THERAPY 93.81 11/14/05 Assessment/Plan - Problem List Patient Problems: All Active Problems CAD (coronary artery disease) (Acute) I25.10 CHF (congestive heart failure) (Acute) I50.9 COPD (chronic obstructive pulmonary disease) (Acute) Dementia (Acute) F03.90 Hypertension (Acute) I10 Psychosis (Acute) F29 - Assessment Assessment: See Above - Plan Plan: Patient medically stable will continue current treatment. Nutritional Asmnt/Malnutr-PDOC - Dietary Evaluation Malnutrition Findings (Please click <Entered> for more info): Nutritional Asmnt/Malnutrition Start: 06/01/17 08: 38 Text: Status: Complete Freq: Document 06/05/17 16:01 GSUN (Rec: 06/05/17 16:11 GSUN [id number]) Nutritional Asmnt/Malnutrition Patient General Information Nutritional Screening Moderate Risk Screening Diagnosis Reason for visit: psychosis Pertinent Medical Hx/Surgical Hx HTN, Afib, CAD, COPD, CHF, CVA , dementia, psychosis Subjective Information 86 year old female. Pt was resting in bed during visit. Pt opened eyes and made contact upon RD's call, shook head declined interview at this time. Spoke to TONYA Plata, RN stated pt has been sleepy this AM, usually with fair to good appetite, no nutritional concerns. Observed loose skin possible hx weight loss, mild wasting to chest, otherwise appeared appropriate for age. Avg PO inake 75-100% since adm , meeting nutritional needs. Current Diet Order/ Nutrition Support [id number] Pertinent Medications Maalox, Theragran, Seroquel, Zocor Pertinent Labs POC glucose 117, 134 since adm No other labs Nutritional Hx/Data Height 1.57 m Height (Calculated Centimeters) 157.5 Current Weight (lbs) 53.932 kg Weight (Calculated Kilograms) 53.9 Weight (Calculated Grams) 26188.1 [place] Body Weight 110 Weight Status Approriate GI Symptoms Food Allergies No Skin Integrity/Comment: Jareth Gunn. Skin intact. Current %PO Good (75-100%) Estimated Nutritional Goals BEE in Kcals: Using Current wt Calories/Kcals/Kg CBW 118.9lb/54kg Kcals Calculated 1350-1620kcal (25-30kcal/kg) Protein: Using Current wt Protein Calculated 54g (1g/kg) Fluid: ml 1350-1620ml (1ml/kcal) Nutritional Problem 1. Problem Problem No nutritional problem at this time. Intervention/Recommendation Comments 1. Continue with current diet order. Avg PO intake is adequate. 2. Monitor glucose, hx DM not noted in H&P, pt is on [id number], not on DM meds, only 2 accuchecks in adm. 3. Nursing staff to record meal activity, 2 recordings since adm. Expected Outcomes/Goals Expected Outcomes/Goals 1. PO intake continue to meet at least 75% of estimated nutritional needs.
[2017-06-20] MEDS: Multivitamin Tab PO SCH (10:17)
--- NOTE | 2017-06-20 22:11 | Progress Notes ---
DATE: 06/20/2017 SUBJECTIVE: Chart reviewed and the patient interviewed. Also discussed the patient's condition with the staff and reviewed records and labs. The patient is still confused and is still forgetful. The patient also is still anxious. The patient also still needs redirections because of confusion. The patient also seems to be in a depressed mood. Otherwise, the patient continued to comply with taking his medications with no side effects of medications. ASSESSMENT: The patient is still depressed and confused. TREATMENT PLAN: We will continue monitoring his behavior and his condition closely. Also, continue Lexapro in a dose of 15 mg every day and continue Seroquel 25 mg twice a day. Also, working on discharge plans and placement issue. [facility]# [id number]
--- NOTE | 2017-06-24 21:06 | Discharge Summary ---
DATE OF DISCHARGE: 06/20/2017 AGE: 86. SEX: Male. PHYSICIAN: Dr. De La Garza. FINAL DIAGNOSIS/PRIMARY DIAGNOSIS: Unspecified psychosis. 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 REASON FOR HOSPITALIZATION: The patient was admitted to the hospital because of aggressive behavior and agitation and irritability and the patient was unable to follow any of staff directions. HOSPITAL COURSE: The patient continued to be severely irritable and agitated. The patient also was confused. He also was depressed and withdrawn. The patient was given Seroquel and the dose adjusted to 25 mg twice a day and also Lexapro and the dose adjusted to 15 mg every day. Gradually, the patient's affect was brighter. The patient was less irritable and less agitated. It was easier to follow directions. Finally, the patient was accepted back to a halfway. The patient had no major medical problems while in the hospital. AFTER DISCHARGE PLANS: Outpatient treatment and followup, to continue as an outpatient. [facility]# [id number]
== END 2017-06-20 11:45 | DRG 885 ==
LOC: GERO 18:37
PROVIDERS: ADMIT Psychiatry & Neurology Psychiatry; ATTEND Psychiatry & Neurology Psychiatry
DX: F29 Unspecified psychosis not due to a substance or known physiological condition (principal); F03.90 Unspecified dementia, unspecified severity, without behavioral disturbance, psychotic disturbance, mood disturbance, and anxiety; I50.9 Heart failure, unspecified; I11.0 Hypertensive heart disease with heart failure; I48.91 Unspecified atrial fibrillation; F32.9 Major depressive disorder, single episode, unspecified; I25.10 Atherosclerotic heart disease of native coronary artery without angina pectoris; J44.9 Chronic obstructive pulmonary disease, unspecified; Z86.73 Personal history of transient ischemic attack (TIA), and cerebral infarction without residual deficits; Z95.0 Presence of cardiac pacemaker; Z88.6 Allergy status to analgesic agent; Z91.041 Radiographic dye allergy status
CPT/HCPCS: 82948-90; 90899; 94760; G0410; J7512; Z7610